=== PATIENT | female | born 1995 | race Caucasian/White ===

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

== ENCOUNTER 2017-03-27 18:42 | Emergency (ER) | payer MEDICAID ==
[~2017-03-27] VITALS: Ht 162.6 cm; Wt 65.5 kg
[~2017-03-27 18:42] MED LIST changes: +IBUP-1542 PO
[2017-03-27 18:58] VITALS: Ht 162.6 cm; Wt 65.5 kg
--- NOTE | 2017-03-27 21:33 | RADRPT ---
PROCEDURE: XR Chest. CLINICAL INDICATION: chest pain, cough TECHNIQUE: Single frontal view of the chest was obtained COMPARISON: None FINDINGS: The heart and mediastinum are within normal limits. The lungs are clear. There is no pleural effusion or pneumothorax. RPTAT: AA IMPRESSION: No acute disease. .Ephraim Swain MD, MD Date Time Electronically viewed and signed by .Ephraim Swain MD, on 03/27/2017 21:33 .S/
[2017-03-27] MEDS ORDERED: AZIT250T94 PO (21:45)
[2017-03-27] MEDS ORDERED: IBUP-1542 PO (21:45)
[2017-03-27] MEDS ORDERED: D-ME473S2 PO (21:45)
--- NOTE | 2017-03-27 21:48 | ERD ---
ER Documentation Chief Complaint Date/Time DATE: 03/27/17 TIME: 21:47 Chief Complaint Pt reports cough for 3 weeks, c/o ST and CWP HPI Stenting of female presents with a productive cough last 3 weeks. She has pain involving primarily in the bilateral rib area. She denies fevers to chest pain. She denies any vomiting or abdominal pain or diarrhea or lower urinary complaints ROS All systems reviewed and are negative except as per history of present illness. Medications Home Meds Active Scripts Dextromethorphan Hb-Promethazine Hcl* (Promethazine DM* Syrup) 473 Ml Syrup, 5 ML PO Q6 Y for COUGH for 5 Days, ML Prov:HAROON HANSON MD 03/27/17 Ibuprofen* (Motrin*) 600 Mg Tab, 600 MG PO Q6, #15 TAB Prov:HAROON HANSON MD 03/27/17 Azithromycin* (Zithromax*) 250 Mg Tablet, 250 MG PO .ZPACK DIRECTED, #6 TAB TAKE 500 MG (2 TABS) THE FIRST DAY THEN 250 MG (1 TAB) DAYS 2-5 Prov:HAROON HANSON MD 03/27/17 Ibuprofen* (Motrin*) 600 Mg Tab, 600 MG PO Q6, #30 TAB Prov:MAINE DESAI 12/28/16 Clindamycin Hcl* (Clindamycin Hcl*) 300 Mg Capsule, 300 MG PO TID for 10 Days, CAP Prov:MAINE DESAI 11/18/16 Allergies Allergies: Coded Allergies: No Known Allergy (Unverified , 12/28/16) PMhx/Soc Medical and Surgical Hx: pt denies Medical Hx, pt denies Surgical Hx Hx Alcohol Use: No Hx Substance Use: No Hx Tobacco Use: No Smoking Status: Never smoker Physical Exam Vitals Vital Signs Date Time Temp Pulse Resp B/P Pulse Ox O2 Delivery O2 Flow Rate FiO2 03/27/17 18:58 98.9 74 16 111/72 100 Physical Exam Const: [], alert, not ill-appearing. Head: Atraumatic Eyes: Normal Conjunctiva ENT: Normal External Ears, Nose and Mouth. Ins and oropharynx normal. Neck: Full range of motion..~ No meningismus. Resp: Clear to auscultation bilaterally Cardio: Regular rate and rhythm, no murmurs Abd: Soft, non tender, non distended. Normal bowel sounds Skin: No petechiae or rashes Back: No midline or flank tenderness Ext: No cyanosis, or edema Neur: Awake and alert Psych: Normal Mood and Affect Procedures/MDM Chest X-ray 1V Interpreted by me: Soft Tissue: No acute abnormalities Bones: No acute abnormalities Mediastinum/Cardiac Silhouette/Lungs: [No acute abnormalities]. Impression- normal 1 view chest x-ray Presents with productive cough without signs or symptoms of pneumonia, evidence of pulmonary embolism, acute coronary syndrome, acute abdomen, and there is no evidence of hypoxemia or respiratory distress. She will treated given the duration of Zithromax, promethazine and ibuprofen. The patient was stable with no new complaints during the ER course. Clinically, there is no current evidence to suggest meningitis, sepsis, acute abdomen, pneumonia, acute coronary syndrome, pulmonary embolism, or any other emergent condition appearing to require further evaluation or hospitalization. The patient should certainly return for any new or worsening symptoms per the aftercare instructions. They should otherwise follow-up with her primary care doctor for reevaluation this week. Departure Diagnosis: Primary Impression: Chest wall pain Additional Impression: Cough Condition: Stable Patient Instructions: Acute Bronchitis Additional Instructions: X-ray read as normal. Recheck for new or worsening symptoms or primary doctor. HAROON HANSON MD Mar 27, 2017 21:48
[2017-03-27 21:56] VITALS: BP 120/80; PULSE 70; RESP 18; TEMP 98.3
== END 2017-03-27 21:58 | disposition home or self-care (01) ==
LOC: FTE 18:42
DX: R07.89 Other chest pain (principal); R05 Cough
CPT/HCPCS: 71010; Z7502

== ENCOUNTER 2017-04-02 20:41 | Emergency (ER) | payer MEDICAID ==
[~2017-04-02] VITALS: Ht 162.6 cm; Wt 66.5 kg
[~2017-04-02 20:41] MED LIST changes: +AZIT250T94 PO; +D-ME473S2 PO
[2017-04-02 20:49] VITALS: Ht 162.6 cm; Wt 66.5 kg
[2017-04-02] MEDS ORDERED: KETOROLAC 30 MG INJ IV STA (23:44)
[2017-04-03] MEDS ORDERED: DIPHENHYDRAMINE 50 MG INJ IV ONE
[2017-04-03] MEDS ORDERED: METOCLOPRAMIDE 10 MG INJ IV ONE
--- NOTE | 2017-04-03 00:17 | RADRPT ---
PROCEDURE: Chest. CLINICAL INDICATION: Chest pain. TECHNIQUE: Single frontal view of the chest was obtained. COMPARISON: 03/27/2017. FINDINGS: The cardiac silhouette is within normal limits. The aortic arch is unremarkable. There is no focal consolidation, vascular congestion or pleural effusion. There is no pneumothorax. IMPRESSION: No evidence for active cardiopulmonary disease. .Dae Peña MD, Date Time Electronically viewed and signed by .Dae Peña MD, on 04/03/2017 00:17 .T/
[2017-04-03 00:55] LABS: BASOPHILS % 0.2 % (0.0-2.0); EOSINOPHILS # 0.1 10^3/ul (0.0-0.5); EOSINOPHILS % 1.3 % (0.0-7.0); HEMATOCRIT 38.2 % (37.0-47.0); HEMOGLOBIN 12.5 g/dl (12.0-16.0); LYMPHOCYTES # 3.9 10^3/ul (0.8-2.9); LYMPHOCYTES % 46.2 % (18.0-55.0); MEAN CORPUSCULAR HEMOGLOBIN 29.6 pg (29.0-33.0); MEAN CORPUSCULAR HGB CONC 32.7 g/dl (32.0-37.0); MEAN CORPUSCULAR VOLUME 90.3 fl (72.0-104.0); MEAN PLATELET VOLUME 12.3 fl (7.4-10.4); MONOCYTE # 0.6 10^3/ul (0.3-0.9); MONOCYTES % 7.3 % (0.0-13.0); NEUTROPHIL # 3.8 10^3/ul (1.6-7.5); NEUTROPHILS % 44.8 % (30.0-74.0); PLATELET COUNT 205 10^3/UL (140-415); RED BLOOD COUNT 4.23 10^6/ul (4.20-5.40); RED CELL DISTRIBUTION WIDTH 12.6 % (11.5-14.5); WHITE BLOOD COUNT 8.5 10^3/ul (4.8-10.8)
[2017-04-03 01:14] LABS: ALBUMIN 4.4 g/dl (3.3-4.9); ALBUMIN/GLOBULIN RATIO 1.15; BILIRUBIN,INDIRECT 0.2 mg/dl (0-1.1); BILIRUBIN,TOTAL 0.2 mg/dl (0.2-1.3); CREATININE 0.61 mg/dl (0.44-1.00); POTASSIUM 3.5 mmol/L (3.5-5.1); TOTAL PROTEIN 8.2 g/dl (6.1-8.1)
[2017-04-03] MEDS ORDERED: NAPR-260 PO (01:44)
[2017-04-03 01:46] LABS: ADD UMIC NO; UR ASCORBIC ACID NEGATIVE (NEGATIVE); UR BILIRUBIN (Dip) NEGATIVE (NEGATIVE); UR BLOOD (Dip) NEGATIVE (NEGATIVE); UR CLARITY CLEAR (CLEAR); UR COLOR STRAW (YELLOW); UR GLUCOSE (Dip) NEGATIVE (NEGATIVE); UR KETONES (Dip) NEGATIVE (NEGATIVE); UR LEUKOCYTE ESTERASE (Dip) NEGATIVE Leu/ul (NEGATIVE); UR NITRITE (Dip) NEGATIVE (NEGATIVE); UR TOTAL PROTEIN (Dip) NEGATIVE (NEGATIVE); UR UROBILINOGEN (Dip) NEGATIVE (NEGATIVE)
--- NOTE | 2017-04-03 01:50 | ERD ---
ER Documentation Chief Complaint Date/Time DATE: 04/03/17 TIME: 01:46 Chief Complaint KATZ for a month HPI This is a 21-year-old female presents to the ER for a headache for the last month. Patient states that the headache is located around her head and a headband area. Patient states that headache occurs every day and is worse in the morning and at night. Is throbbing in quality. Patient denies any head trauma. She denies any nausea or vomiting. Patient denies any photophobia vision loss or vision changes. Patient tried taking ibuprofen, however it has not helped. Patient does admit to diarrhea over the last 2 weeks. Patient was seen here recently for bronchitis, and states that she took her antibiotics, however her headache continued. Patient is also complaining of continued intermittent chest pain which is sharp in quality. Chest pain is nonradiating. She denies any shortness of breath. Not traveled anywhere. She denies any leg swelling or pain. ROS 12 point review of systems was done, all negative except per HPI. Medications Home Meds Active Scripts Naproxen* (Naprosyn*) 500 Mg Tablet, 500 MG PO BID Y for PAIN AND/OR INFLAMMATION, #30 TAB Prov:MAINE DESAI 04/03/17 Dextromethorphan Hb-Promethazine Hcl* (Promethazine DM* Syrup) 473 Ml Syrup, 5 ML PO Q6 Y for COUGH for 5 Days, ML Prov:HAROON HANSON MD 03/27/17 Ibuprofen* (Motrin*) 600 Mg Tab, 600 MG PO Q6, #15 TAB Prov:HAROON HANSON MD 03/27/17 Azithromycin* (Zithromax*) 250 Mg Tablet, 250 MG PO .ZPACK DIRECTED, #6 TAB TAKE 500 MG (2 TABS) THE FIRST DAY THEN 250 MG (1 TAB) DAYS 2-5 Prov:HAROON HANSON MD 03/27/17 Ibuprofen* (Motrin*) 600 Mg Tab, 600 MG PO Q6, #30 TAB Prov:MAINE DESAI 12/28/16 Clindamycin Hcl* (Clindamycin Hcl*) 300 Mg Capsule, 300 MG PO TID for 10 Days, CAP Prov:MAINE DESAI 11/18/16 Allergies Allergies: Coded Allergies: No Known Allergy (Unverified , 6/30/17) PMhx/Soc Medical and Surgical Hx: pt denies Medical Hx, pt denies Surgical Hx Hx Alcohol Use: No Hx Substance Use: No Hx Tobacco Use: No Smoking Status: Never smoker Physical Exam Vitals Vital Signs Date Time Temp Pulse Resp B/P Pulse Ox O2 Delivery O2 Flow Rate FiO2 04/02/17 20:49 98.3 76 16 119/76 99 Physical Exam GENERAL: The patient is well developed and appropriate for usual state of health , in no apparent distress. HEENT: Atraumatic. Conjunctivae are pink. Pupils equal, round, and reactive to light. Extraocular muscles are grossly intact. Bilateral tympanic membranes are clear with no evidence of erythema, bulging or perforation. No sinus tenderness. NECK: C-spine is soft and supple. There is no cervical lymphadenopathy. CHEST: Clear to auscultation bilaterally. There are no rales, wheezes or rhonchi. HEART: Regular rate and rhythm. No murmurs, clicks, rubs or gallops. EXTREMITIES: Equal pulses bilaterally. There is no peripheral clubbing, cyanosis or edema. No focal swelling or erythema. Full range of motion. Grossly neurovascularly intact. NEURO: Alert and oriented. Cranial nerves II through XII are intact. Motor strength in all 4 extremities with 5/5 strength. Sensation grossly intact. Normal speech and gait. Negative Rhomberg. +2 DTRs. SKIN: There is no apparent rash or petechia. The skin is warm and dry. Result Diagram: 04/03/17 0019 04/03/17 0019 Results 24 hrs Laboratory Tests Test 04/03/17 00:19 White Blood Count 8.510^3/ul Red Blood Count 4.2310^6/ul Hemoglobin 12.5g/dl Hematocrit 38.2% Mean Corpuscular Volume 90.3fl Mean Corpuscular Hemoglobin 29.6pg Mean Corpuscular Hemoglobin Concent 32.7g/dl Red Cell Distribution Width 12.6% Platelet Count 38933^3/UL Mean Platelet Volume 12.3fl Neutrophils % 44.8% Lymphocytes % 46.2% Monocytes % 7.3% Eosinophils % 1.3% Basophils % 0.2% Nucleated Red Blood Cells % 0.0/100WBC Neutrophils # 3.810^3/ul Lymphocytes # 3.910^3/ul Monocytes # 0.610^3/ul Eosinophils # 0.110^3/ul Basophils # 0.010^3/ul Nucleated Red Blood Cells # 0.010^3/ul Sodium Level 140mmol/L Potassium Level 3.5mmol/L Chloride Level 105mmol/L Carbon Dioxide Level 26mmol/L Anion Gap 13 Blood Urea Nitrogen 10mg/dl Creatinine 0.61mg/dl Glucose Level 87mg/dl Calcium Level 10.0mg/dl Total Bilirubin 0.2mg/dl Direct Bilirubin 0.00mg/dl Indirect Bilirubin 0.2mg/dl Aspartate Amino Transf (AST/SGOT) 24IU/L Alanine Aminotransferase (ALT/SGPT) 32IU/L Alkaline Phosphatase 53IU/L Total Protein 8.2g/dl Albumin 4.4g/dl Globulin 3.80g/dl Albumin/Globulin Ratio 1.15 Current Medications Medications (Trade) Dose Ordered Sig/Ba Route PRN Reason Start Time Stop Time Status Last Admin Dose Admin Ketorolac Tromethamine (Toradol) 30 mg ONCE STAT IV 04/02/17 23:44 04/02/17 23:48 DC Diphenhydramine HCl (Benadryl) 25 mg ONCE ONCE IV 04/03/17 00:00 04/03/17 00:01 DC Metoclopramide HCl (Reglan) 10 mg ONCE ONCE IV 04/03/17 00:00 04/03/17 00:01 DC Procedures/MDM Differential Diagnosis includes but is not limited to; tension headache, migraine headache, cluster headache, sinus headache, nonspecific febrile headache, trigeminal neurologia, subdural hematoma, subarachnoid bleeding, meningitis, encephalitis. Patient is neurologically intact with no focal neurological deficits. I do not believe that CT imaging is needed at this time as patient has had this headache over the last month and is not the worst headache of her life. He was going to treat patient with a migraine cocktail of Toradol, Reglan, Benadryl, however patient states that her headache was not hurting at this time and the headache is only intermittent. He is afebrile and extremely well-appearing suspicion for meningitis or encephalitis is low. In regards to patient's continued chest wall pain, this is likely musculoskeletal in nature. EKG was taken [address] elevation or T-wave inversion. CT was read by Dr. Moghadam, x-ray was negative for any intrathoracic abnormality. Suspicion for pulmonary embolism is low. Patient does not have any PERC criteria. Patient will be sent home with naproxen. She is to follow-up with her primary care doctor within 1-2 days return to ER sooner if symptoms worsen. My medical decision making sure that the patient she understands and agrees with plan. Departure Diagnosis: Primary Impression: Headache Condition: Stable Patient Instructions: Self-Care for Headaches Additional Instructions: Call your primary care doctor TOMORROW for an appointment during the next 1-2 days.See the doctor sooner or return here if your condition worsens before your appointment time. MAINE DESAI Apr 03, 2017 01:50
== END 2017-04-03 02:25 | disposition home or self-care (01) ==
LOC: FTE 20:41
DX: R51 Headache (principal); R07.9 Chest pain, unspecified
CPT/HCPCS: 71010; 80053; 81003; 85025; 93005; Z7502; J1200; J1885; J2765

== ENCOUNTER 2017-10-18 13:42 | Emergency (ER) | END 2017-10-18 15:26 | disposition home or self-care (01) ==

== ENCOUNTER 2017-11-15 18:43 | Emergency (ER) | END 2017-11-15 19:22 | disposition home or self-care (01) ==

== ENCOUNTER 2019-02-16 05:03 | Emergency (ER) | payer MEDICAID ==
[~2019-02-16] VITALS: Ht 162.6 cm; Wt 67.9 kg
[~2019-02-16 05:03] MED LIST changes: +AMOX500C2 PO; +AZIT250T PO; -AZIT250T94 PO; +CETI10CA PO; -CLIN-73 PO; +CLIN300C10 PO; +CYCL10TA7 PO; +HYDR-3029 PO; +IBUP800T48 PO; +LORA1TAB PO; +NAPR-985 PO
[2019-02-16 05:18] VITALS: BP 105/60; PULSE 77; RESP 18; Ht 162.6 cm; Wt 67.9 kg
[2019-02-16] MEDS ORDERED: LORAZEPAM 1 MG TAB PO ONE (05:30)
== END 2019-02-16 06:20 | disposition home or self-care (01) ==
LOC: FTE 05:03
DX: F41.9 Anxiety disorder, unspecified (principal)
CPT/HCPCS: 81025; 93005; Z7502; Z7610

== ENCOUNTER 2019-02-20 13:03 | Emergency (ER) | payer MEDICAID ==
[~2019-02-20] VITALS: Ht 165.1 cm; Wt 68.0 kg
[2019-02-20 13:08] VITALS: Ht 165.1 cm; Wt 68.0 kg
[2019-02-20] MEDS ORDERED: KETOROLAC 30 MG INJ IM STA (13:43)
[2019-02-20] MEDS ORDERED: DEXAMETHASONE 10 MG/ML 1 ML INJ IM ONE (14:00)
[2019-02-20 14:22] VITALS: BP 110/70; PULSE 70; RESP 18
== END 2019-02-20 14:23 | disposition home or self-care (01) ==
LOC: FTE 13:03
DX: M62.830 Muscle spasm of back (principal)
CPT/HCPCS: 81003; 81025; 96372; J1100; J1885; Z7502